=== PATIENT | male | born 1965 | race Two or more races ===

== ENCOUNTER 2019-06-11 22:04 | Inpatient (IN) | payer OTHER ==
[~2019-06-11] VITALS: Ht 167.6 cm; Wt 68.5 kg
[2019-06-15] MEDS ORDERED: ULTRACET PO (10:45)
[2019-06-15] MEDS ORDERED: SURFAK240 M1 PO (10:45)
== END 2019-06-15 12:56 | disposition home or self-care (01) | DRG 336 ==
LOC: ER 22:04 → SEC-K 23:51 → SURH 23:51 → O/R 06-12 10:21 → SURH 06-12 10:33
PROVIDERS: ADMIT Surgery
PROC: BW21ZZZ Computerized Tomography (CT Scan) of Abdomen and Pelvis (ICD-10-PCS; 2019-06-11)
PROC: 0YQ50ZZ Repair Right Inguinal Region, Open Approach (ICD-10-PCS; 2019-06-12)
PROC: 0DH67UZ Insertion of Feeding Device into Stomach, Via Natural or Artificial Opening (ICD-10-PCS; 2019-06-12)
PROC: 3E0G76Z Introduction of Nutritional Substance into Upper GI, Via Natural or Artificial Opening (ICD-10-PCS; 2019-06-12)
PROC: 0DNN0ZZ Release Sigmoid Colon, Open Approach (ICD-10-PCS; principal; 2019-06-12 07:00)
DX: K40.30 Unilateral inguinal hernia, with obstruction, without gangrene, not specified as recurrent (principal); K56.51 Intestinal adhesions [bands], with partial obstruction; E44.0 Moderate protein-calorie malnutrition; K57.30 Diverticulosis of large intestine without perforation or abscess without bleeding

== ENCOUNTER 2023-11-22 13:11 | Inpatient (IN) | payer OTHER ==
[~2023-11-22] VITALS: Ht 170.2 cm; Wt 72.6 kg
[~2023-11-22 13:11] MED LIST: SURFAK240 M1 PO; ULTRACET PO
[2023-11-22] MEDS ORDERED: 0.9 % SODIUM CHLORIDE 1,000 ML IV STA (15:09)
[2023-11-22] MEDS ORDERED: MEPERIDINE HCL/PF 50 MG/ML VIAL IM STA (15:09)
[2023-11-22] MEDS ORDERED: PROMETHAZINE HCL 50 MG/ML AMPUL IM STA (15:10)
[2023-11-22] MEDS ORDERED: PIPERACILLIN/TAZOBACTAM SODIUM 3.375 GM in 0.9 % SODIUM CHLORIDE 100 ML IV STA (15:27)
[2023-11-22 15:49] LABS: HEMATOCRIT 47.5 % (39.0-48.0); HEMOGLOBIN 16.3 g/dL (13-16.00); MEAN CORPUSCULAR HEMOGLOBIN 31.3 pg (27.00-32.0); MEAN CORPUSCULAR HGB CONC 34.4 g/dl (32.0-36.0); PLATELET COUNT 314 K/uL (150-450); RED BLOOD COUNT 5.22 M/uL (4.00-6.00); RED CELL DISTRIBUTION WIDTH 14.9 % (11.5-14.5)
[2023-11-22 16:08] LABS: PARTIAL THROMBOPLASTIN TIME 31.9 SECONDS (22.0-34.0); PROTHROMBIN TIME 10.5 SECONDS (9.0-11.5)
[2023-11-22 16:13] LABS: ALBUMIN 4.1 gm/dL (3.4-5.0); BILIRUBIN TOTAL 0.55 mg/dL (0.3-1.2); BILIRUBIN,CONJUGATED 0.13 mg/dL (0.0-0.2); BILIRUBIN,UNCONJUGATED 0.42 mg/dL (0.0-0.6); CALCIUM 10.2 mg/dL (8.5-10.1); CREATININE SERUM 0.84 mg/dL (0.70-1.30); GFR 93.21; POTASSIUM 4.36 mEq/L (3.5-5.1); TOTAL PROTEIN 8.2 gm/dL (6.4-8.2)
[2023-11-22 18:06] LABS: PH,URINE 6.5 (5.0-8.0); URINE APPEARANCE Clear; URINE BILIRRUBIN Negative (NEGATIVE); URINE BLOOD Large; URINE COLOR Yellow; URINE GLUCOSE Negative (NEGATIVE); URINE LEUKOCYTE Negative; URINE NITRATE Negative; URINE PROTEIN 30 (NEGATIVE); URINE UROBILINOGEN 0.2 E.U./dl
[2023-11-22 18:07] LABS: URINE BACTERIA 13.8 uL (0.0-1933); URINE EPITHELIAL CELLS 2.7 uL (0.0-38.8); URINE WBC 2.3 uL (0.0-23.2)
[2023-11-22] MEDS ORDERED: MEPERIDINE HCL/PF 25 MG/ML VIAL IM PRN (19:30)
[2023-11-22] MEDS ORDERED: ACETAMINOPHEN 500 MG GEL..CAP PO PRN (19:30)
[2023-11-22] MEDS ORDERED: KETOROLAC TROMETHAMINE 15 MG VIAL IU ONE (19:30)
[2023-11-22] MEDS ORDERED: ONDANSETRON HCL 4 MG in 0.9 % SODIUM CHLORIDE 50 ML IV PRN (19:30)
[2023-11-22] MEDS ORDERED: 0.9 % SODIUM CHLORIDE 1,000 ML IV SCH (19:30)
[2023-11-23] MEDS ORDERED: PIPERACILLIN/TAZOBACTAM SODIUM 3.375 GM in DEXTROSE 5 % IN WATER 100 ML IV SCH
[2023-11-23] MEDS ORDERED: FAMOTIDINE/PF 20 MG in 0.9 % SODIUM CHLORIDE 8 ML IV PUSH SCH (09:00)
== END 2023-11-23 13:39 | disposition home or self-care (01) | DRG 395 ==
LOC: ER 13:11 → MEDI 20:12
PROVIDERS: General Practice; ADMIT Internal Medicine; ATTEND Internal Medicine
PROC: BW21ZZZ Computerized Tomography (CT Scan) of Abdomen and Pelvis (ICD-10-PCS; principal; 2023-11-22)
DX: K40.90 Unilateral inguinal hernia, without obstruction or gangrene, not specified as recurrent (principal); Z20.822 Contact with and (suspected) exposure to COVID-19